=== PATIENT | male | born 2000 | race Caucasian/White ===

== ENCOUNTER 2023-03-08 21:57 | Emergency (ER) | payer MEDICAID ==
[~2023-03-08] VITALS: Ht 182.9 cm; Wt 104.5 kg
[2023-03-08] MEDS ORDERED: ondansetron/PF 4mg/2ml inj IV ONE (23:55)
[2023-03-08] MEDS ORDERED: glucagon, human recombinant 1mg kit IV ONE (23:55)
[2023-03-09 00:25] LABS: BASOPHILS % (AUTO) 0.3 % (0-1); EOSINOPHILS # (AUTO) 0.2 X10'3 (0-0.9); EOSINOPHILS % (AUTO) 1.1 % (0-6); HEMATOCRIT 48.2 % (42.0-52.0); HEMOGLOBIN 16.4 g/dl (14.0-17.9); LYMPHOCYTES # (AUTO) 1.2 X10'3 (1.1-4.8); LYMPHOCYTES % (AUTO) 9.2 % (21-51); MEAN CORPUSCULAR HEMOGLOBIN 30.6 PG (27.0-31.0); MEAN CORPUSCULAR HGB CONC 33.9 g/dL (33.0-36.5); MEAN CORPUSCULAR VOLUME 90.2 FL (78-98); MEAN PLATELET VOLUME 10.4 FL (7.4-10.4); MONOCYTES # (AUTO) 0.8 X10'3 (0-0.9); MONOCYTES % (AUTO) 6.2 % (2-12); NEUTROPHILS # (AUTO) 11.2 X10'3 (1.8-7.7); NEUTROPHILS % (AUTO) 83.2 % (42-75); PLATELET COUNT 248 X10'3 (140-440); RED BLOOD COUNT 5.35 X10'6 (4.70-6.10); RED CELL DISTRIBUTION WIDTH 12.2 % (11.5-14.5); WHITE BLOOD COUNT 13.5 X10'3 (4.5-11.0)
[2023-03-09 00:31] LABS: ALANINE AMINOTRANSFERASE 49 U/L (12-78); ALBUMIN 4.4 G/DL (3.4-5.0); ALBUMIN/GLOBULIN RATIO 1.4 (1.1-1.5); ALKALINE PHOSPHATASE 95 IU/L (46-116); ANION GAP 10 (8-16); ASPARTATE AMINO TRANSFERASE 28 U/L (10-37); BILIRUBIN,TOTAL 1.6 MG/DL (0.1-1.0); BLOOD UREA NITROGEN 14 MG/DL (7-18); BUN/CREATININE RATIO 16.3 (10.0-20.0); CHLORIDE 108 MMOL/L (99-107); CREATININE 0.86 MG/DL (0.60-1.10); GLUCOSE 99 MG/DL (70-104); POTASSIUM 3.9 MMOL/L (3.5-5.1); SODIUM 144 MMOL/L (135-145); TOTAL PROTEIN 7.6 G/DL (6.4-8.2); eGFR > 90 ML/MIN
[2023-03-09 02:10] VITALS: BP 128/81
[2023-03-09] MEDS ORDERED: fentaNYL/PF 50MCG/1 ML 2ML syringe ONE (02:23)
[2023-03-09] MEDS ORDERED: LIDOcaine Viscous 15ml cup ONE (02:23)
[2023-03-09] MEDS ORDERED: MIDAZolam 1 MG/ML 5ML VIAL ONE (02:23)
[2023-03-09 02:45] VITALS: BP 126/90
[2023-03-09 02:55] VITALS: BP 109/82
[2023-03-09 03:05] VITALS: BP 92/59
[2023-03-09 03:15] VITALS: BP 104/51
[2023-03-09] MEDS ORDERED: OMEP40CA21 PO (03:54)
[2023-03-09 04:22] VITALS: BP 110/57
== END 2023-03-09 04:24 | disposition home or self-care (01) ==
LOC: ER 21:58
DX: T18.128A Food in esophagus causing other injury, initial encounter (principal); R11.2 Nausea with vomiting, unspecified; Z98.890 Other specified postprocedural states; Z79.899 Other long term (current) drug therapy; Y92.89 Other specified places as the place of occurrence of the external cause
CPT/HCPCS: 43239; 43247; 80053; 85025; 96374; 96375; 99152; 99285; J1610; J2250; J2405; J3010; J7030; Z7512; A4620; C1769

== ENCOUNTER 2025-08-09 09:47 | Emergency (ER) | payer MEDICAID ==
[~2025-08-09] VITALS: Ht 182.9 cm; Wt 119.5 kg
[2025-08-09 09:48] VITALS: BP_SYST 1; PULSE 95; RESP 16; TEMP 98.6; O2SAT 98
[2025-08-09] MEDS ORDERED: ACET15SO14 LEFT EAR (09:57)
[2025-08-09] MEDS ORDERED: AMOX500C2 PO (09:57)
--- NOTE | 2025-08-09 09:57 | Physician Documentation ---
History of Present Illness ~ Chief Complaint: Ear Pain Stated Complaint: EAR PAIN Time Seen by MD: 09:57 Primary Medical Doctor: [facility] HPI 24-year-old male presents to the ER with a complaint of left ear pain. States that his whole ear hurts denies any drainage, however he reports general malaise. Day of Onset: Aug 09, 2025 Medication Reconciliation Allergies: Coded Allergies: No Known Allergies (Unverified , 09/13/14) Scheduled Acetic Acid (Acetic Acid), 4 DROP LEFT EAR Q12H Amoxicillin Trihydrate* (Amoxicillin*), 1 CAP PO Q8H Past Medical History Past Medical History: No Pertinent History Past Surgical History: tonsillectomy, other Alcohol Use: None Drug Use: none Lives with: Family Lives In: Home Review of Systems All Other Systems at this time: Reviewed and Negative ROS As stated above in the HPI, otherwise all systems are reviewed and negative. Physical Exam Vital Signs: Temperature: 98.6, Source: Oral, Heart Rate: 95, Respiratory Rate: 16, BP: 1/, Pulse Oximetry: 98, Weight: 119.500 Oxygen Flow Rate: 0 Physical Exam General: Alert, no apparent distress. HEENT: PERRL, EOMI, no injection, moist mucous membranes. Inflamed external auditory canal with a cloudy tympanic membrane no evidence of discharge Neck: Full range of motion. Respiratory: Lungs clear, no respiratory distress. Chest: No accessory muscle use. Neurologic: Oriented x4. Psychiatric: Normal mood and affect. Progress Results/Orders Results/Orders Vital Signs 08/09/25 09:48 Temp 98.6 Pulse 95 Resp 16 B/P (MAP) 1/ Pulse Ox 98 O2 Flow Rate 0 Medical Decision Making Additional information obtaine: N/A Findings This patient presents with suspected otitis media and otitis externa. We will be treating him empirically with oral antibiotics and ascetic acid for his otitis externa Ear Diff. Dx: Considerations: Include: Abrasion, Cerumen impaction, Foreign body, Otitis externa, Barotrauma, Otitis media, Perforation, Referred pain- dental, Referred pain-pharyngitis, Referred pain-sinusitis, Referred pain-TMJ syn., Tympanic Membrane Injury, Other Eye Diff. Dx: Considerations: Unlikely: Chalazoin, Conjuctivits-allergic, Conjuctivitis-bacterial, Conjuctivits-chlamydial, Conjuctivitis-viral, Corneal a brasion, Corneal laceration, Corneal ulceration, Foreign body-conjuctiva, Foreign body-corneal, Foreign body-intraocular, Foreign body-lid, Glaucoma, Globe rupture, Hordeolum, Iritis, Orbital cellulitis, Periobital cellulitis, Retinal artery occulsion, Retinal vein occlusion, Rust ring, Subconjunctival hem, Ultraviolet keratitis, Uveitis, Vitreous hemorrhage, Other Nose Diff. Dx: Considerations: Unlikely: Abrasion, Anterior nasal bleed, Avulsion, Contusion, Coagulopathy, Fracture-nasal bone, Fracture-septum, Hypertension, Laceration, Other, Posterior nasal bleed, Retained foreign body, Septal hematoma Tooth Diff. Dx: Considerations: Unlikely: Alveolar fracture, Aveolar osteitis, ANUG, Facial cellulitis, Periapical abscess, Periodontal abscess, Post- extraction bleeding, Pulpitis, Trigeminal neuralgia, Tooth-avulsion, Tooth- eruption, Tooth-fracture, Tooth-subluxation, Other Throat Diff Dx: Considerations: Unlikely: AIDS, Epiglottitis, Esophageal candidiasis, Hand foot mouth disease, Herpangina, Herpetic stomatitis, Herpes simplex, Infection mononucleosis, Immunodeficiency, Ck's angina, Peritonsillar abscess, Peritonsillar cellulitis, Pharyngitis-diphtheria, Pharyngitis-strepococcal, Pharyngitis-viral, Thrush, URI, Other Departure Disposition: 01 HOME / SELF CARE / HOMELESS Impression: Primary Impression: Otitis externa Additional Impression: Otitis media Discharge Instructions: Otitis Media, Adult Referrals: NO PRIMARY CARE PROVIDER (PCP) Prescriptions Amoxicillin Trihydrate* (Amoxicillin*) 500 Mg Capsule 1 CAP PO Q8H for 10 Days, #30 CAP Prov: VARUN EVERETT NP 08/09/25 Acetic Acid (Acetic Acid) 2 % Solution 4 DROP LEFT EAR Q12H for 7 Days, #15 ML 0 Refills Prov: VARUN EVERETT NP 08/09/25 Education Educated: Patient Educated regarding: diagnosis Signature Scribe Signature: hans Attestation: Scribed for Varun Everett [employer] Technician by Varun Larry NP . 08/09/25 18:49 VARUN EVERETT NP Aug 09, 2025 09:57
== END 2025-08-09 10:17 | disposition home or self-care (01) ==
LOC: ER 09:48
DX: H66.92 Otitis media, unspecified, left ear (principal); H60.92 Unspecified otitis externa, left ear; Z79.899 Other long term (current) drug therapy; Z90.89 Acquired absence of other organs
CPT/HCPCS: 99283